=== PATIENT | female | born 2000 | race Caucasian/White ===

== ENCOUNTER 2021-04-01 16:51 | Emergency (ER) | payer BC ==
[2021-04-01] MEDS ORDERED: ACETAMINOPHEN TAB 325 MG TAB PO STA (17:37)
--- NOTE | 2021-04-01 17:42 | ED ---
General Adult HPI - General Chief complaint: Upper Respiratory Infection Stated complaint: Covid+,Wants Antibody Time Seen by Provider: 04/01/21 17:24 Source: patient, RN notes reviewed Mode of arrival: ambulatory Limitations: no limitations - History of Present Illness Initial comments: This is a well-appearing 20-year-old female who presents to the emergency room with complaints of being exposed to her mother who is covid positive. She states that yesterday she started to have a headache and today developed a fever. She did get tested for Covid and is positive at an urgent care today. She came into the emergency room for monoclonal antibody infusion. She has not been vaccinated. She has no medical history. No medications on a daily basis. She has an IUD in place. -: days(s) (2) Location: head Radiation: non-radiation Consistency: intermittent Associated Symptoms: fever/chills - Related Data Allergies Allergy/AdvReac Type Severity Reaction Status Date / Time No Known Allergies Allergy Verified 04/01/21 17:06 Review of Systems ROS Statement: Those systems with pertinent positive or pertinent negative responses have been documented in the HPI. ROS Other: All systems not noted in ROS Statement are negative. Past Medical History Past Medical History: No Reported History History of Any Multi-Drug Resistant Organisms: None Reported Past Surgical History: No Surgical Hx Reported Smoking Status: Never smoker Past Alcohol Use History: None Reported Past Drug Use History: None Reported General Exam Limitations: no limitations General appearance: alert, in no apparent distress Head exam: Present: atraumatic, normocephalic, normal inspection Eye exam: Present: normal appearance, EOMI ENT exam: Present: normal exam, normal oropharynx, mucous membranes moist Neck exam: Present: normal inspection, full ROM. Absent: tenderness, meningismus, lymphadenopathy, thyromegaly Respiratory exam: Present: normal lung sounds bilaterally. Absent: respiratory distress, wheezes, rales, rhonchi, stridor Cardiovascular Exam: Present: regular rate, normal rhythm, normal heart sounds. Absent: systolic murmur, diastolic murmur, rubs, gallop, clicks GI/Abdominal exam: Present: soft, normal bowel sounds. Absent: distended, tenderness, guarding, rebound, rigid Extremities exam: Present: normal inspection, full ROM, normal capillary refill. Absent: tenderness, pedal edema, joint swelling, calf tenderness Back exam: Present: normal inspection, full ROM. Absent: tenderness, CVA tenderness (R), CVA tenderness (L), rash noted Neurological exam: Present: alert, oriented X3 Psychiatric exam: Present: normal affect, normal mood Skin exam: Present: warm, dry, intact, normal color. Absent: rash Course Vital Signs 04/01/21 04/01/21 04/01/21 17:03 17:50 19:47 Temperature 101.6 F H 99 F Pulse Rate 68 112 H Respiratory 19 18 16 Rate Blood Pressure 115/71 117/78 O2 Sat by Pulse 97 98 Oximetry Medical Decision Making - Medical Decision Making This is a 20-year-old female that presents to the emergency room with a positive Covid test from an urgent care. She states that her mom had Covid and for the past 2 days she's had a headache and fevers. She is well-appearing. She does meet criteria for monoclonal antibodies infusion and is requesting it. She tolerated the infusion well will be discharged home directed to self quarantine for 10 days of symptom onset and follow-up with her primary care doctor as needed. Vital signs are stable and her temperature is normal. She was also directed to continue with Tylenol and Motrin as needed for fevers or body aches. Case discussed with Dr. Washington Disposition Clinical Impression: COVID-19 Disposition: HOME SELF-CARE Condition: Good Instructions (If sedation given, give patient instructions): Coronavirus Disease 2019 (COVID-19) Additional Instructions: Take Tylenol and/or Motrin as needed for body aches and fevers. Self quarantine for 10 days from symptom onset and 24 hours without fever. Return to the emergency room with any new or worsening symptoms including increased shortness of breath or chest pain. Is patient prescribed a controlled substance at d/c from ED?: No Referrals: Guzman Viramontes MD [Primary Care Provider] - 1-2 days
[2021-04-01] MEDS ORDERED: CASIRIVIMAB/IMDEVIMAB (EUA) 1,200 MG in SODIUM CHLORIDE 0.9% 100 ML IVPB ONE (18:15)
[2021-04-01] MEDS ORDERED: SODIUM CHLORIDE 0.9% 50 ML IVPB ONE (18:15)
[2021-04-01 19:49] VITALS: BP 117/78; PULSE 112; RESP 16; TEMP 99
== END 2021-04-01 19:48 | disposition home or self-care (01) ==
LOC: EC 16:51
DX: U07.1 COVID-19 (principal)
CPT/HCPCS: 96365; 99284; Q0243